=== PATIENT | female | born 1930 | race Caucasian/White ===

== ENCOUNTER 2017-09-03 22:01 | Inpatient (IN) | payer MEDICARE, MEDICAID ==
[~2017-09-03] VITALS: Ht 162.6 cm; Wt 60.0 kg
[2017-09-03 22:37] LABS: BASOPHILS % (AUTO) 0.7 % (0-1); EOSINOPHILS # (AUTO) 0.1 X10'3 (0-0.9); EOSINOPHILS % (AUTO) 1.1 % (0-6); HEMATOCRIT 37.6 % (35.0-45.0); HEMOGLOBIN 12.5 g/dl (12.0-16.0); LYMPHOCYTES # (AUTO) 1.4 X10'3 (1.1-4.8); LYMPHOCYTES % (AUTO) 29.9 % (21-51); MEAN CORPUSCULAR HEMOGLOBIN 30.8 PG (27.0-31.0); MEAN CORPUSCULAR HGB CONC 33.3 % (33.0-36.5); MEAN CORPUSCULAR VOLUME 92.6 FL (78-98); MEAN PLATELET VOLUME 10.1 FL (7.4-10.4); MONOCYTES # (AUTO) 0.6 X10'3 (0-0.9); MONOCYTES % (AUTO) 12.1 % (2-12); NEUTROPHILS # (AUTO) 2.7 X10'3 (1.8-7.7); NEUTROPHILS % (AUTO) 56.2 % (42-75); PLATELET COUNT 172 X10'3 (140-440); RED BLOOD COUNT 4.07 X10'6 (4.20-5.60); RED CELL DISTRIBUTION WIDTH 14.6 % (11.5-14.5); WHITE BLOOD COUNT 4.8 X10'3 (4.5-11.0)
[2017-09-03 22:52] LABS: INR 1.1 INR; PARTIAL THROMBOPLASTIN TIME 23 SECONDS (22-32)
[2017-09-03 23:04] LABS: ALANINE AMINOTRANSFERASE 16 U/L (12-78); ALBUMIN 3.7 G/DL (3.4-5.0); ALBUMIN/GLOBULIN RATIO 1.3 (1.1-1.5); ALKALINE PHOSPHATASE 59 IU/L (46-116); ANION GAP 7 (8-16); ASPARTATE AMINO TRANSFERASE 15 U/L (10-37); BILIRUBIN,TOTAL 0.6 MG/DL (0.1-1.0); BLOOD UREA NITROGEN 13 MG/DL (7-18); BUN/CREATININE RATIO 13.8 (6.6-38.0); CALCIUM 8.7 MG/DL (8.5-10.1); CHLORIDE 105 MMOL/L (99-107); CREATININE 0.94 MG/DL (0.40-0.90); GLUCOSE 107 MG/DL (70-104); POTASSIUM 3.2 MMOL/L (3.5-5.1); SODIUM 142 MMOL/L (135-145); TOTAL CARBON DIOXIDE 30.4 MMOL/L (24-32); TOTAL PROTEIN 6.6 G/DL (6.4-8.2); eGFR 57 ML/MIN
[2017-09-03 23:45] LABS: CLARITY,URINE CLOUDY (Clear); COLOR,URINE YELLOW (Yellow); GLUCOSE, URINE NEGATIVE (Neg); KETONES,URINE TRACE mg/dl (Neg); LEUKOCYTE ESTERASE ,URINE SMALL (Neg); NITRITES, URINE POSITIVE (Neg); OCCULT BLOOD,URINE TRACE-INTACT (Neg); PH,URINE 5.5 (4.8-8.0); PROTEIN,URINE 30 mg/dl (Neg); UROBILINOGEN,URINE 0.2 E.U/dL (0.2-1.0)
[2017-09-03 23:52] LABS: UA COLLECTION TYPE STRAIGHT CATH
[2017-09-03 23:53] LABS: BACTERIA,URINE 4+ /HPF (Neg); RBC,URINE 0-2 /HPF (0-2); SQUAMOUS EPITHELIAL CELL,UR FEW /LPF (FEW); WBC CLUMPS,URINE FEW /HPF (NEGATIVE); WBC,URINE 30-50 /HPF (0-4)
[2017-09-04] MEDS ORDERED: CefTRIAXone/D5W-Rocephin 1gm 50 ML IV ONE
[2017-09-04] MEDS ORDERED: ALENDRONATE PO (00:07)
[2017-09-04] MEDS ORDERED: BACL20TA7 PO (00:07)
[2017-09-04] MEDS ORDERED: CELE-85 PO (00:07)
[2017-09-04] MEDS ORDERED: SIMV10TA6 PO (00:07)
[2017-09-04] MEDS ORDERED: OMEP40CA37 PO (00:07)
[2017-09-04] MEDS ORDERED: PREG50CA PO (00:07)
[2017-09-04] MEDS ORDERED: FERR324T PO (00:07)
[2017-09-04] MEDS ORDERED: LEVO50TA8 PO (00:08)
[2017-09-04] MEDS ORDERED: HYDR-3964 PO (00:08)
[2017-09-04] MEDS ORDERED: BIMA2.5D IN (00:08)
[2017-09-04] MEDS ORDERED: LEVO25TA7 PO (00:08)
[2017-09-04] MEDS ORDERED: ondansetron/PF 4mg/2ml inj IV PRN (01:20)
[2017-09-04] MEDS ORDERED: metoclopramide 5 mg/ml inj IV PRN (01:20)
[2017-09-04] MEDS ORDERED: diphenhydrAMINE 25mg capsule PO PRN (01:20)
[2017-09-04] MEDS ORDERED: HYDROcodone/acetaminophen 5mg/325mg tablet PO PRN (01:20)
[2017-09-04] MEDS ORDERED: magnesium hydroxide 30ml (MOM) UD suspension PO PRN (01:20)
[2017-09-04] MEDS ORDERED: diphenhydrAMINE 50 mg/ml inj IV PRN (01:20)
[2017-09-04] MEDS ORDERED: magnesium 4gm in 100ml NS 100 ML IV PRN (01:20)
[2017-09-04] MEDS ORDERED: mag hydrox/Alum hydrox/simeth 30ml oral suspension PO PRN (01:20)
[2017-09-04] MEDS ORDERED: magnesium Cl slow-release 64mg tablet PO PRN (01:20)
[2017-09-04] MEDS ORDERED: morphine 4 MG/ML inj SYRINge IV PRN ×2 (01:20)
[2017-09-04] MEDS ORDERED: bisacodyl 10mg suppository rectal RC PRN (01:20)
[2017-09-04] MEDS ORDERED: magnesium 1gm/100ml D5W IVPB 50 ML IV PRN (01:20)
[2017-09-04] MEDS ORDERED: hydrALAZINE 20mg/ml inj. IV PRN (01:20)
[2017-09-04] MEDS ORDERED: HYDROmorphone inj. 0.5 MG/0.5 ML DISP.SYRIN IV PRN (01:20)
[2017-09-04] MEDS ORDERED: potassium Cl 20 mEq SR tablet PO PRN (01:20)
[2017-09-04] MEDS ORDERED: acetaminophen 650mg rectal suppository RC PRN (01:20)
[2017-09-04] MEDS ORDERED: potassium Cl 40MEQ/NS 500ml 500 ML IV PRN ×2 (01:20)
[2017-09-04] MEDS ORDERED: acetaminophen 325mg tablet PO PRN (01:20)
[2017-09-04] MEDS: dextrose 5%-1/2 normal saline 1,000 ML IV SCH ×2 (01:45→11:16)
[2017-09-04 02:05] LABS: PHOSPHORUS 3.6 MG/DL (2.3-4.5)
[2017-09-04 02:30] VITALS: BP 173/78
[2017-09-04 06:30] VITALS: BP 181/76
[2017-09-04] MEDS: K and/or MAG REPLACEMENT MC SCH (08:00)
[2017-09-04] MEDS ORDERED: non-formulary drug (Levothyroxine Sodium 1 TAB) PO SCH (08:00)
[2017-09-04] MEDS ORDERED: CefTRIAXone/D5W-Rocephin 1gm 50 ML IV SCH (08:00)
[2017-09-04] MEDS: HYDROcodone/acetaminophen 5mg/325mg tablet PO SCH ×3 (08:25→23:30)
[2017-09-04] MEDS: baclofen 10mg tablet PO SCH (08:25)
[2017-09-04] MEDS: pantoprazole 40mg Tablet.DR PO SCH (08:27)
[2017-09-04] MEDS: lactobacillus rhamnosus 10,000 MMU CELLS/CAPSULE PO SCH ×2 (08:27→20:00)
[2017-09-04] MEDS: pregabalin 25mg capsule PO SCH ×2 (08:27→20:00)
[2017-09-04] MEDS: atorvastatin 10mg tablet PO SCH (08:27)
[2017-09-04] MEDS: ferrous gluconate 324mg tablet PO SCH ×2 (08:27→16:37)
[2017-09-04] MEDS: levoTHYROXINE 75mcg tablet PO SCH (08:27)
[2017-09-04] MEDS: docusate sod 100mg capsule PO SCH ×2 (08:27→20:00)
[2017-09-04] MEDS ORDERED: levoFLOXACIN 500mg tablet PO SCH (11:00)
[2017-09-04 11:30] VITALS: BP 146/75
[2017-09-04] MEDS: potassium Cl 20 mEq SR tablet PO PRN ×2 (14:22→23:30)
[2017-09-04 16:10] VITALS: BP 157/67
[2017-09-04 18:00] VITALS: BP 157/67
[2017-09-04 20:19] LABS: ALBUMIN 3.3 G/DL (3.4-5.0); ANION GAP 9 (8-16); BLOOD UREA NITROGEN 9 MG/DL (7-18); BUN/CREATININE RATIO 9.4 (6.6-38.0); CALCIUM 8.4 MG/DL (8.5-10.1); CHLORIDE 106 MMOL/L (99-107); CREATININE 0.96 MG/DL (0.40-0.90); GLUCOSE 93 MG/DL (70-104); POTASSIUM 3.3 MMOL/L (3.5-5.1); SODIUM 143 MMOL/L (135-145); TOTAL CARBON DIOXIDE 27.9 MMOL/L (24-32); eGFR 55 ML/MIN
[2017-09-04] MEDS ORDERED: temazepam 15mg capsule PO PRN (21:00)
[2017-09-04] MEDS: latanoprost 0.005% 2.5ml ophthalmic drops EACHEYE SCH (21:00)
[2017-09-05 02:00] VITALS: BP 156/72
[2017-09-05 05:56] LABS: BASOPHILS % (AUTO) 0.4 % (0-1); EOSINOPHILS # (AUTO) 0.1 X10'3 (0-0.9); EOSINOPHILS % (AUTO) 0.8 % (0-6); HEMATOCRIT 39.1 % (35.0-45.0); HEMOGLOBIN 13.1 g/dl (12.0-16.0); LYMPHOCYTES # (AUTO) 1.7 X10'3 (1.1-4.8); LYMPHOCYTES % (AUTO) 19.7 % (21-51); MEAN CORPUSCULAR HEMOGLOBIN 30.8 PG (27.0-31.0); MEAN CORPUSCULAR HGB CONC 33.5 % (33.0-36.5); MEAN CORPUSCULAR VOLUME 91.8 FL (78-98); MEAN PLATELET VOLUME 10.4 FL (7.4-10.4); MONOCYTES # (AUTO) 0.8 X10'3 (0-0.9); MONOCYTES % (AUTO) 9.3 % (2-12); NEUTROPHILS # (AUTO) 5.9 X10'3 (1.8-7.7); NEUTROPHILS % (AUTO) 69.8 % (42-75); PLATELET COUNT 193 X10'3 (140-440); RED BLOOD COUNT 4.26 X10'6 (4.20-5.60); RED CELL DISTRIBUTION WIDTH 14.6 % (11.5-14.5); WHITE BLOOD COUNT 8.5 X10'3 (4.5-11.0)
[2017-09-05 06:00] VITALS: BP 169/90
[2017-09-05 06:44] LABS: ALANINE AMINOTRANSFERASE 19 U/L (12-78); ALBUMIN 3.7 G/DL (3.4-5.0); ALBUMIN/GLOBULIN RATIO 1.3 (1.1-1.5); ALKALINE PHOSPHATASE 62 IU/L (46-116); ANION GAP 11 (8-16); ASPARTATE AMINO TRANSFERASE 23 U/L (10-37); BILIRUBIN,TOTAL 0.8 MG/DL (0.1-1.0); BLOOD UREA NITROGEN 8 MG/DL (7-18); BUN/CREATININE RATIO 7.4 (6.6-38.0); CALCIUM 8.6 MG/DL (8.5-10.1); CHLORIDE 104 MMOL/L (99-107); CHOL/HDL RATIO 2.1 (0.00-4.99); CHOLESTEROL 159 MG/DL (0-200); CREATININE 1.08 MG/DL (0.40-0.90); GLUCOSE 80 MG/DL (70-104); HDL CHOLESTEROL 76 MG/DL (35-60); LDL CHOLESTEROL 72 MG/DL (50-100); MAGNESIUM 1.9 MG/DL (1.5-2.4); POTASSIUM 3.4 MMOL/L (3.5-5.1); SODIUM 144 MMOL/L (135-145); TOTAL CARBON DIOXIDE 29.3 MMOL/L (24-32); TOTAL PROTEIN 6.6 G/DL (6.4-8.2); TRIGLYCERIDES 79 MG/DL (20-135); eGFR 48 ML/MIN
[2017-09-05] MEDS: ferrous gluconate 324mg tablet PO SCH ×2 (07:30→17:30)
[2017-09-05] MEDS: levoTHYROXINE 75mcg tablet PO SCH (07:30)
[2017-09-05] MEDS: pantoprazole 40mg Tablet.DR PO SCH (07:30)
[2017-09-05] MEDS: baclofen 10mg tablet PO SCH (08:00)
[2017-09-05] MEDS: pregabalin 25mg capsule PO SCH ×2 (08:00→19:48)
[2017-09-05] MEDS: docusate sod 100mg capsule PO SCH ×2 (08:00→19:48)
[2017-09-05] MEDS: atorvastatin 10mg tablet PO SCH (08:00)
[2017-09-05] MEDS: lactobacillus rhamnosus 10,000 MMU CELLS/CAPSULE PO SCH ×2 (08:00→19:48)
[2017-09-05] MEDS: HYDROcodone/acetaminophen 5mg/325mg tablet PO SCH ×3 (08:00→23:16)
[2017-09-05] MEDS: K and/or MAG REPLACEMENT MC SCH (08:53)
[2017-09-05 10:00] VITALS: BP 187/92
[2017-09-05] MEDS: levoFLOXACIN 250mg tablet PO SCH ×2 (10:08→11:00)
[2017-09-05] MEDS ORDERED: CefTRIAXone/D5W-Rocephin 1gm 50 ML IV SCH (12:05)
[2017-09-05] MEDS ORDERED: CefTRIAXone 1000mg IM Kit (w/lidocaine diluent) IM ONE (13:50)
[2017-09-05] MEDS ORDERED: LORazepam 2 mg/ml vial IM ONE (13:50)
[2017-09-05 18:14] VITALS: BP 173/97
[2017-09-05] MEDS: latanoprost 0.005% 2.5ml ophthalmic drops EACHEYE SCH (21:00)
[2017-09-05 21:56] VITALS: BP 147/83
[2017-09-06 06:00] VITALS: BP 150/75
[2017-09-06 06:22] LABS: BASOPHILS % (AUTO) 0.2 % (0-1); EOSINOPHILS % (AUTO) 0 % (0-6); HEMATOCRIT 41.7 % (35.0-45.0); HEMOGLOBIN 14.1 g/dl (12.0-16.0); LYMPHOCYTES # (AUTO) 0.9 X10'3 (1.1-4.8); MEAN CORPUSCULAR HGB CONC 33.8 % (33.0-36.5); MEAN CORPUSCULAR VOLUME 91.7 FL (78-98); MEAN PLATELET VOLUME 10.7 FL (7.4-10.4); MONOCYTES # (AUTO) 0.7 X10'3 (0-0.9); MONOCYTES % (AUTO) 4.7 % (2-12); NEUTROPHILS # (AUTO) 12.8 X10'3 (1.8-7.7); NEUTROPHILS % (AUTO) 89.1 % (42-75); PLATELET COUNT 181 X10'3 (140-440); RED BLOOD COUNT 4.55 X10'6 (4.20-5.60); RED CELL DISTRIBUTION WIDTH 14.5 % (11.5-14.5); WHITE BLOOD COUNT 14.3 X10'3 (4.5-11.0)
[2017-09-06 06:28] LABS: ALANINE AMINOTRANSFERASE 15 U/L (12-78); ALBUMIN 3.9 G/DL (3.4-5.0); ALBUMIN/GLOBULIN RATIO 1.2 (1.1-1.5); ALKALINE PHOSPHATASE 68 IU/L (46-116); ANION GAP 23 (8-16); ASPARTATE AMINO TRANSFERASE 23 U/L (10-37); BILIRUBIN,TOTAL 0.7 MG/DL (0.1-1.0); BLOOD UREA NITROGEN 16 MG/DL (7-18); BUN/CREATININE RATIO 16.7 (6.6-38.0); CALCIUM 8.7 MG/DL (8.5-10.1); CHLORIDE 99 MMOL/L (99-107); CREATININE 0.96 MG/DL (0.40-0.90); GLUCOSE 59 MG/DL (70-104); SODIUM 138 MMOL/L (135-145); TOTAL CARBON DIOXIDE 16.4 MMOL/L (24-32); TOTAL PROTEIN 7.1 G/DL (6.4-8.2); eGFR 55 ML/MIN
[2017-09-06 06:32] LABS: POTASSIUM 4.2 MMOL/L (3.5-5.1)
[2017-09-06] MEDS: ferrous gluconate 324mg tablet PO SCH ×2 (07:30→17:30)
[2017-09-06] MEDS: levoTHYROXINE 75mcg tablet PO SCH (07:30)
[2017-09-06] MEDS: pantoprazole 40mg Tablet.DR PO SCH (07:30)
[2017-09-06] MEDS: baclofen 10mg tablet PO SCH (08:00)
[2017-09-06] MEDS: K and/or MAG REPLACEMENT MC SCH (08:00)
[2017-09-06] MEDS: HYDROcodone/acetaminophen 5mg/325mg tablet PO SCH ×3 (08:00→23:06)
[2017-09-06] MEDS: pregabalin 25mg capsule PO SCH ×2 (08:00→19:49)
[2017-09-06] MEDS: atorvastatin 10mg tablet PO SCH (08:00)
[2017-09-06] MEDS: lactobacillus rhamnosus 10,000 MMU CELLS/CAPSULE PO SCH ×2 (08:00→19:49)
[2017-09-06] MEDS: docusate sod 100mg capsule PO SCH ×2 (08:00→19:49)
[2017-09-06 08:11] LABS: PLATELET ESTIMATE NORMAL
[2017-09-06 08:12] LABS: LARGE PLATELETS FEW
[2017-09-06] MEDS: levoFLOXACIN 250mg tablet PO SCH (11:00)
[2017-09-06 11:39] VITALS: BP 161/83
[2017-09-06] MEDS ORDERED: magnesium 1gm/100ml D5W IVPB 100 ML IV PRN (13:19)
[2017-09-06] MEDS: fluconazole-Diflucan 100MG/NS 50 ML IV SCH (14:46)
[2017-09-06] MEDS: CefTRIAXone/D5W-Rocephin 1gm 50 ML IV SCH (15:32)
[2017-09-06] MEDS: LORazepam 2 mg/ml vial IV PRN (16:16)
[2017-09-06 18:31] VITALS: BP 143/52
[2017-09-06] MEDS: normal saline 1000ml 1,000 ML IV SCH (19:23)
[2017-09-06] MEDS ORDERED: HYDROmorphone 1 mg/ml syringe ONE (19:25)
[2017-09-06] MEDS: methylPREDNISolone sod succ/PF 40mg inj. IV SCH (19:26)
[2017-09-06] MEDS: HYDROmorphone inj. 0.5 MG/0.5 ML DISP.SYRIN IV PRN ×2 (19:27→19:48)
[2017-09-06] MEDS ORDERED: HYDROmorphone 1 mg/ml syringe IV PRN ×2 (19:48)
[2017-09-06] MEDS: HYDROcodone/acetaminophen 10/325mg tab PO PRN ×2 (19:50→20:42)
[2017-09-06] MEDS: latanoprost 0.005% 2.5ml ophthalmic drops EACHEYE SCH (21:00)
[2017-09-06 22:00] VITALS: BP 134/90
[2017-09-07 05:00] VITALS: BP 165/80
[2017-09-07] MEDS: normal saline 1000ml 1,000 ML IV SCH ×2 (05:10→13:33)
[2017-09-07 05:46] LABS: BASOPHILS % (AUTO) 0.1 % (0-1); EOSINOPHILS # (AUTO) 0.2 X10'3 (0-0.9); EOSINOPHILS % (AUTO) 1.8 % (0-6); HEMATOCRIT 38.4 % (35.0-45.0); HEMOGLOBIN 12.9 g/dl (12.0-16.0); LYMPHOCYTES # (AUTO) 0.4 X10'3 (1.1-4.8); LYMPHOCYTES % (AUTO) 4.1 % (21-51); MEAN CORPUSCULAR HGB CONC 33.7 % (33.0-36.5); MEAN CORPUSCULAR VOLUME 92.1 FL (78-98); MEAN PLATELET VOLUME 9.9 FL (7.4-10.4); MONOCYTES # (AUTO) 0.1 X10'3 (0-0.9); MONOCYTES % (AUTO) 0.5 % (2-12); NEUTROPHILS # (AUTO) 9.3 X10'3 (1.8-7.7); NEUTROPHILS % (AUTO) 93.5 % (42-75); PLATELET COUNT 193 X10'3 (140-440); RED BLOOD COUNT 4.17 X10'6 (4.20-5.60); RED CELL DISTRIBUTION WIDTH 14.6 % (11.5-14.5)
[2017-09-07 06:11] LABS: ALANINE AMINOTRANSFERASE 13 U/L (12-78); ALBUMIN 3.4 G/DL (3.4-5.0); ALKALINE PHOSPHATASE 62 IU/L (46-116); ANION GAP 18 (8-16); ASPARTATE AMINO TRANSFERASE 19 U/L (10-37); BILIRUBIN,TOTAL 0.5 MG/DL (0.1-1.0); BLOOD UREA NITROGEN 16 MG/DL (7-18); BUN/CREATININE RATIO 16.3 (6.6-38.0); CALCIUM 8.4 MG/DL (8.5-10.1); CHLORIDE 102 MMOL/L (99-107); CREATININE 0.98 MG/DL (0.40-0.90); GLUCOSE 107 MG/DL (70-104); POTASSIUM 3.9 MMOL/L (3.5-5.1); SODIUM 139 MMOL/L (135-145); TOTAL CARBON DIOXIDE 19.3 MMOL/L (24-32); TOTAL PROTEIN 6.8 G/DL (6.4-8.2); eGFR 54 ML/MIN
[2017-09-07] MEDS: pantoprazole 40mg Tablet.DR PO SCH (07:30)
[2017-09-07] MEDS: ferrous gluconate 324mg tablet PO SCH ×2 (07:30→17:30)
[2017-09-07] MEDS: levoTHYROXINE 75mcg tablet PO SCH (07:30)
[2017-09-07] MEDS: baclofen 10mg tablet PO SCH (08:00)
[2017-09-07] MEDS: lactobacillus rhamnosus 10,000 MMU CELLS/CAPSULE PO SCH ×2 (08:00→20:00)
[2017-09-07] MEDS: docusate sod 100mg capsule PO SCH ×2 (08:00→20:00)
[2017-09-07] MEDS: K and/or MAG REPLACEMENT MC SCH (08:00)
[2017-09-07] MEDS: atorvastatin 10mg tablet PO SCH (08:00)
[2017-09-07] MEDS: pregabalin 25mg capsule PO SCH ×2 (08:00→20:00)
[2017-09-07] MEDS: HYDROcodone/acetaminophen 5mg/325mg tablet PO SCH ×3 (08:00→23:35)
[2017-09-07 10:00] VITALS: BP 144/77
[2017-09-07] MEDS: levoFLOXACIN 250mg tablet PO SCH (11:00)
[2017-09-07] MEDS: CefTRIAXone/D5W-Rocephin 1gm 50 ML IV SCH (11:15)
[2017-09-07] MEDS: methylPREDNISolone sod succ/PF 40mg inj. IV SCH ×2 (13:21→13:32)
[2017-09-07] MEDS: fluconazole-Diflucan 100MG/NS 50 ML IV SCH (13:44)
[2017-09-07 18:00] VITALS: BP 156/75
[2017-09-07] MEDS: LORazepam 2 mg/ml vial IV PRN (19:24)
[2017-09-07] MEDS: latanoprost 0.005% 2.5ml ophthalmic drops EACHEYE SCH (20:27)
[2017-09-07 22:13] VITALS: BP 156/82
[2017-09-08 05:00] VITALS: BP 161/69
[2017-09-08 05:25] LABS: BASOPHILS % (AUTO) 0 % (0-1); EOSINOPHILS # (AUTO) 0.1 X10'3 (0-0.9); EOSINOPHILS % (AUTO) 1.1 % (0-6); HEMATOCRIT 36.3 % (35.0-45.0); HEMOGLOBIN 12.3 g/dl (12.0-16.0); LYMPHOCYTES # (AUTO) 0.6 X10'3 (1.1-4.8); LYMPHOCYTES % (AUTO) 4.9 % (21-51); MEAN CORPUSCULAR HGB CONC 33.8 % (33.0-36.5); MEAN CORPUSCULAR VOLUME 91.8 FL (78-98); MEAN PLATELET VOLUME 9.9 FL (7.4-10.4); MONOCYTES # (AUTO) 0.3 X10'3 (0-0.9); MONOCYTES % (AUTO) 2.7 % (2-12); NEUTROPHILS # (AUTO) 10.3 X10'3 (1.8-7.7); NEUTROPHILS % (AUTO) 91.3 % (42-75); PLATELET COUNT 207 X10'3 (140-440); RED BLOOD COUNT 3.95 X10'6 (4.20-5.60); RED CELL DISTRIBUTION WIDTH 14.5 % (11.5-14.5); WHITE BLOOD COUNT 11.3 X10'3 (4.5-11.0)
[2017-09-08 06:00] LABS: ALANINE AMINOTRANSFERASE 16 U/L (12-78); ALBUMIN 3.3 G/DL (3.4-5.0); ALBUMIN/GLOBULIN RATIO 1.1 (1.1-1.5); ALKALINE PHOSPHATASE 54 IU/L (46-116); ANION GAP 17 (8-16); ASPARTATE AMINO TRANSFERASE 16 U/L (10-37); BILIRUBIN,TOTAL 0.5 MG/DL (0.1-1.0); BLOOD UREA NITROGEN 15 MG/DL (7-18); BUN/CREATININE RATIO 17.2 (6.6-38.0); CALCIUM 8.5 MG/DL (8.5-10.1); CHLORIDE 103 MMOL/L (99-107); CREATININE 0.87 MG/DL (0.40-0.90); GLUCOSE 106 MG/DL (70-104); MAGNESIUM 1.8 MG/DL (1.5-2.4); POTASSIUM 3.7 MMOL/L (3.5-5.1); SODIUM 138 MMOL/L (135-145); TOTAL CARBON DIOXIDE 18.2 MMOL/L (24-32); TOTAL PROTEIN 6.3 G/DL (6.4-8.2); eGFR 62 ML/MIN
[2017-09-08] MEDS: pantoprazole 40mg Tablet.DR PO SCH (07:30)
[2017-09-08] MEDS: ferrous gluconate 324mg tablet PO SCH ×2 (07:30→17:30)
[2017-09-08] MEDS: fluconazole-Diflucan 100MG/NS 50 ML IV SCH (08:00)
[2017-09-08] MEDS: K and/or MAG REPLACEMENT MC SCH (08:00)
[2017-09-08] MEDS: HYDROcodone/acetaminophen 5mg/325mg tablet PO SCH ×3 (08:00→23:32)
[2017-09-08] MEDS: CefTRIAXone/D5W-Rocephin 1gm 50 ML IV SCH (09:22)
[2017-09-08] MEDS: baclofen 10mg tablet PO SCH (09:24)
[2017-09-08] MEDS: methylPREDNISolone sod succ/PF 40mg inj. IV SCH ×2 (09:24→20:54)
[2017-09-08] MEDS: levoTHYROXINE 75mcg tablet PO SCH (09:24)
[2017-09-08] MEDS: pregabalin 25mg capsule PO SCH ×2 (09:25→20:00)
[2017-09-08] MEDS: lactobacillus rhamnosus 10,000 MMU CELLS/CAPSULE PO SCH ×3 (09:26→21:44)
[2017-09-08] MEDS: docusate sod 100mg capsule PO SCH ×2 (09:29→20:00)
[2017-09-08] MEDS: atorvastatin 10mg tablet PO SCH (09:30)
[2017-09-08 10:00] VITALS: BP 167/86
[2017-09-08] MEDS: levoFLOXACIN 250mg tablet PO SCH (11:02)
[2017-09-08] MEDS: normal saline 1000ml 1,000 ML IV SCH (14:30)
[2017-09-08] MEDS: LORazepam 2 mg/ml vial IV PRN ×2 (15:40→21:13)
[2017-09-08 18:00] VITALS: BP 139/69
[2017-09-08] MEDS: latanoprost 0.005% 2.5ml ophthalmic drops EACHEYE SCH (21:00)
[2017-09-08] MEDS: OLANZapine 5mg rapidly disint. tablet PO PRN ×2 (21:37→21:46)
[2017-09-08 23:00] VITALS: BP 144/81
[2017-09-09] MEDS: normal saline 1000ml 1,000 ML IV SCH (01:57)
[2017-09-09 06:00] VITALS: BP 164/78
[2017-09-09] MEDS: K and/or MAG REPLACEMENT MC SCH (07:47)
[2017-09-09] MEDS: baclofen 10mg tablet PO SCH (08:42)
[2017-09-09] MEDS: HYDROcodone/acetaminophen 5mg/325mg tablet PO SCH ×2 (08:42→16:00)
[2017-09-09] MEDS: pregabalin 25mg capsule PO SCH ×2 (08:42→21:33)
[2017-09-09] MEDS: ferrous gluconate 324mg tablet PO SCH ×2 (08:43→17:30)
[2017-09-09] MEDS: levoTHYROXINE 75mcg tablet PO SCH (08:43)
[2017-09-09] MEDS: pantoprazole 40mg Tablet.DR PO SCH (08:43)
[2017-09-09] MEDS: docusate sod 100mg capsule PO SCH ×2 (08:43→21:33)
[2017-09-09] MEDS: fluconazole 100mg tablet PO SCH (08:45)
[2017-09-09] MEDS: atorvastatin 10mg tablet PO SCH (08:45)
[2017-09-09 10:00] VITALS: BP 141/71
[2017-09-09] MEDS ORDERED: ondansetron 4mg rapidly disintigrating tab PO PRN (10:10)
[2017-09-09 10:22] LABS: BASOPHILS % (AUTO) 0.1 % (0-1); EOSINOPHILS # (AUTO) 0.2 X10'3 (0-0.9); EOSINOPHILS % (AUTO) 1.5 % (0-6); HEMATOCRIT 39.9 % (35.0-45.0); HEMOGLOBIN 13.5 g/dl (12.0-16.0); LYMPHOCYTES # (AUTO) 0.5 X10'3 (1.1-4.8); LYMPHOCYTES % (AUTO) 4.2 % (21-51); MEAN CORPUSCULAR HEMOGLOBIN 30.8 PG (27.0-31.0); MEAN CORPUSCULAR HGB CONC 33.8 % (33.0-36.5); MEAN CORPUSCULAR VOLUME 91.3 FL (78-98); MEAN PLATELET VOLUME 10.1 FL (7.4-10.4); MONOCYTES # (AUTO) 0.4 X10'3 (0-0.9); MONOCYTES % (AUTO) 3.1 % (2-12); NEUTROPHILS # (AUTO) 10.3 X10'3 (1.8-7.7); NEUTROPHILS % (AUTO) 91.1 % (42-75); PLATELET COUNT 214 X10'3 (140-440); RED BLOOD COUNT 4.37 X10'6 (4.20-5.60); RED CELL DISTRIBUTION WIDTH 14.6 % (11.5-14.5); WHITE BLOOD COUNT 11.3 X10'3 (4.5-11.0)
[2017-09-09 11:12] LABS: ALANINE AMINOTRANSFERASE 16 U/L (12-78); ALBUMIN 3.3 G/DL (3.4-5.0); ALKALINE PHOSPHATASE 60 IU/L (46-116); ANION GAP 13 (8-16); ASPARTATE AMINO TRANSFERASE 18 U/L (10-37); BILIRUBIN,TOTAL 0.5 MG/DL (0.1-1.0); BLOOD UREA NITROGEN 15 MG/DL (7-18); CALCIUM 8.4 MG/DL (8.5-10.1); CHLORIDE 103 MMOL/L (99-107); CREATININE 0.88 MG/DL (0.40-0.90); GLUCOSE 133 MG/DL (70-104); MAGNESIUM 2.2 MG/DL (1.5-2.4); POTASSIUM 3.5 MMOL/L (3.5-5.1); SODIUM 142 MMOL/L (135-145); TOTAL CARBON DIOXIDE 26.4 MMOL/L (24-32); TOTAL PROTEIN 6.6 G/DL (6.4-8.2); eGFR 61 ML/MIN
[2017-09-09] MEDS: prednisone 10mg tablet PO SCH (12:03)
[2017-09-09] MEDS: levoFLOXACIN 250mg tablet PO SCH (12:03)
[2017-09-09 18:00] VITALS: BP 158/75
[2017-09-09] MEDS: latanoprost 0.005% 2.5ml ophthalmic drops EACHEYE SCH (21:32)
[2017-09-09] MEDS: lactobacillus rhamnosus 10,000 MMU CELLS/CAPSULE PO SCH (21:33)
[2017-09-09 22:00] VITALS: BP 163/66
[2017-09-10 06:00] VITALS: BP 145/76
[2017-09-10] MEDS: docusate sod 100mg capsule PO SCH (07:27)
[2017-09-10] MEDS: ferrous gluconate 324mg tablet PO SCH ×2 (07:27→17:30)
[2017-09-10] MEDS: levoTHYROXINE 75mcg tablet PO SCH (07:27)
[2017-09-10] MEDS: fluconazole 100mg tablet PO SCH (07:27)
[2017-09-10] MEDS: pantoprazole 40mg Tablet.DR PO SCH (07:27)
[2017-09-10] MEDS: lactobacillus rhamnosus 10,000 MMU CELLS/CAPSULE PO SCH (07:27)
[2017-09-10] MEDS: prednisone 10mg tablet PO SCH (07:28)
[2017-09-10] MEDS: baclofen 10mg tablet PO SCH (07:28)
[2017-09-10] MEDS: pregabalin 25mg capsule PO SCH ×2 (07:28→20:54)
[2017-09-10] MEDS: atorvastatin 10mg tablet PO SCH (07:28)
[2017-09-10] MEDS: HYDROcodone/acetaminophen 5mg/325mg tablet PO SCH ×3 (07:28→16:00)
[2017-09-10] MEDS: K and/or MAG REPLACEMENT MC SCH (07:33)
[2017-09-10] MEDS: levoFLOXACIN 250mg tablet PO SCH (11:00)
[2017-09-10] MEDS: OLANZapine 5mg rapidly disint. tablet PO PRN ×2 (11:39→23:09)
[2017-09-10] MEDS ORDERED: LACTOSE-FREE FOOD 237ML (BOOST) PO SCH (13:00)
[2017-09-10] MEDS ORDERED: morphine 10mg/0.5ml (conc. morphine) oral syringe PO PRN (19:40)
[2017-09-10] MEDS ORDERED: atropine sulfate 1% ophthalmic drops SL PRN (19:40)
[2017-09-10] MEDS: latanoprost 0.005% 2.5ml ophthalmic drops EACHEYE SCH (20:54)
[2017-09-10 22:00] VITALS: BP 128/78
[2017-09-11 06:00] VITALS: BP 162/99
[2017-09-11] MEDS: prednisone 10mg tablet PO SCH (07:48)
[2017-09-11] MEDS: pregabalin 25mg capsule PO SCH ×2 (07:48→20:14)
[2017-09-11] MEDS: baclofen 10mg tablet PO SCH (07:48)
[2017-09-11 18:00] VITALS: BP 123/75
[2017-09-11] MEDS: OLANZapine 5mg rapidly disint. tablet PO PRN (20:15)
[2017-09-11] MEDS: latanoprost 0.005% 2.5ml ophthalmic drops EACHEYE SCH (21:00)
[2017-09-11 22:00] VITALS: BP 144/95
[2017-09-12 06:41] VITALS: BP 153/88
[2017-09-12] MEDS: pregabalin 25mg capsule PO SCH ×2 (08:02→22:04)
[2017-09-12] MEDS: baclofen 10mg tablet PO SCH (08:02)
[2017-09-12] MEDS: prednisone 10mg tablet PO SCH (08:05)
[2017-09-12 12:03] VITALS: BP 141/73
[2017-09-12 22:00] VITALS: BP 184/83
[2017-09-12] MEDS: latanoprost 0.005% 2.5ml ophthalmic drops EACHEYE SCH (22:04)
[2017-09-13 06:00] VITALS: BP 135/72
[2017-09-13] MEDS: OLANZapine 5mg rapidly disint. tablet PO PRN (09:21)
[2017-09-13] MEDS: baclofen 10mg tablet PO SCH (09:21)
[2017-09-13] MEDS: prednisone 10mg tablet PO SCH (09:21)
[2017-09-13] MEDS: pregabalin 25mg capsule PO SCH (09:21)
[2017-09-13 10:00] VITALS: BP 149/71
== END 2017-09-13 16:30 | DRG 871 ==
LOC: ER 22:02 → ED HOLD 09-04 01:16 → PCU 3S 09-04 02:48 → ORTHO 4S 09-04 16:12
PROVIDERS: ADMIT Family Medicine; ATTEND Family Medicine
PROC: 0HBRXZZ Excision of Toe Nail, External Approach (ICD-10-PCS; principal; 2017-09-06)
PROC: 0HBRXZZ Excision of Toe Nail, External Approach (ICD-10-PCS; 2017-09-06)
PROC: 0HBRXZZ Excision of Toe Nail, External Approach (ICD-10-PCS; 2017-09-06)
PROC: 0HBRXZZ Excision of Toe Nail, External Approach (ICD-10-PCS; 2017-09-06)
PROC: 0HBRXZZ Excision of Toe Nail, External Approach (ICD-10-PCS; 2017-09-06)
PROC: 0HBRXZZ Excision of Toe Nail, External Approach (ICD-10-PCS; 2017-09-06)
PROC: 0HBRXZZ Excision of Toe Nail, External Approach (ICD-10-PCS; 2017-09-06)
PROC: 0HBRXZZ Excision of Toe Nail, External Approach (ICD-10-PCS; 2017-09-06)
PROC: 0HBRXZZ Excision of Toe Nail, External Approach (ICD-10-PCS; 2017-09-06)
PROC: 0HBRXZZ Excision of Toe Nail, External Approach (ICD-10-PCS; 2017-09-06)
DX: A41.9 Sepsis, unspecified organism (principal); G93.40 Encephalopathy, unspecified; E43 Unspecified severe protein-calorie malnutrition; N39.0 Urinary tract infection, site not specified; E87.6 Hypokalemia; E03.9 Hypothyroidism, unspecified; L40.9 Psoriasis, unspecified; B35.1 Tinea unguium; B35.3 Tinea pedis; F03.90 Unspecified dementia, unspecified severity, without behavioral disturbance, psychotic disturbance, mood disturbance, and anxiety; E78.5 Hyperlipidemia, unspecified; M54.9 Dorsalgia, unspecified; E86.0 Dehydration; B96.20 Unspecified Escherichia coli [E. coli] as the cause of diseases classified elsewhere; G89.4 Chronic pain syndrome; I10 Essential (primary) hypertension; M81.0 Age-related osteoporosis without current pathological fracture; R62.7 Adult failure to thrive; Z51.5 Encounter for palliative care; Z66 Do not resuscitate; Z79.891 Long term (current) use of opiate analgesic; Z79.899 Other long term (current) drug therapy; Z68.22 Body mass index [BMI] 22.0-22.9, adult
CPT/HCPCS: 36415; 70450; 70544; 70551; 71045; 80048; 80053; 80061; 81001; 82948; 83605; 83735; 83880; 84100; 84145; 84439; 84443; 84484; 85025; 85610; 85730; 87040; 87070; 87077; 87088; 87186; 92616; 93005; 93306; 93880; 96365; 97116; 97162; 97530; 99285; A4353; A6209; A6212; A6213; A6446; J0696; J1170; J1450; J2060; J2920; J7030; J7512